=== PATIENT | male | born 1980 | race American Indian/Alaskan Native ===

== ENCOUNTER 2023-02-24 16:05 | Emergency (ER) | payer SELFPAY ==
[~2023-02-24] VITALS: Ht 154.9 cm; Wt 95.7 kg
[2023-02-24 16:42] LABS: BASO % 0.7 % (0.0-1.0); EOS % 0.3 % (1.0-4.0); HEMATOCRIT 45.3 % (42.0-52.0); LYMPH # 1.2 10*3/uL (1.3-4.4); MEAN CELL VOLUME 92.8 fl (80.0-94.0); MEAN CORPUSCULAR HGB 29.1 pg (27.0-31.0); MEAN CORPUSCULAR HGB CONC 31.3 g/dl (33.0-37.0); MEAN PLATELET VOLUME 9.4 fl (9.6-12.3); MONO # 0.7 10*3/uL (0.1-1.0); MONO % 11.1 % (3.0-9.0); NEUT # 4.1 10*3/uL (2.3-7.9); NEUT % 67.6 % (47.0-73.0); PLATELET COUNT AUTOMATED 255 10*3/uL (130-400); RED BLOOD COUNT 4.88 10*6/uL (4.50-5.90); RED CELL DISTRI WIDTH 12.9 % (0-14.5); WHITE BLOOD COUNT 6.1 10*3/uL (4.8-10.8)
[2023-02-24 17:05] LABS: ALKALINE PHOSPHATASE 81 U/L (46-116); CHLORIDE 104 mmol/L (98-107); POTASSIUM 3.9 mmol/L (3.4-5.1); SGPT/ALT 73 U/L (5-49); TOTAL PROTEIN 7.7 gm/dL (6.0-8.0)
[2023-02-24 17:06] LABS: BUN < 5 mg/dl (9-23)
[2023-02-24] MEDS ORDERED: REGLAN10 M1 PO (17:54)
[2023-02-24] MEDS ORDERED: IBU800 M2 PO (17:54)
[2023-02-24] MEDS ORDERED: TAMIFLU 75MG CA75 MG PO (17:54)
== END 2023-02-24 18:18 | disposition home or self-care (01) ==
LOC: ED 16:05
PROVIDERS: Emergency Medicine
DX: J11.1 Influenza due to unidentified influenza virus with other respiratory manifestations (principal); R51.9 Headache, unspecified; R50.9 Fever, unspecified; R05.9 Cough, unspecified; R07.89 Other chest pain; R10.13 Epigastric pain; M10.9 Gout, unspecified; Z87.442 Personal history of urinary calculi; Z20.822 Contact with and (suspected) exposure to COVID-19